=== PATIENT | female | born 1990 | race African-American/Black ===

== ENCOUNTER 2018-10-26 19:45 | Emergency (ER) | payer BC ==
[~2018-10-26] VITALS: Ht 170.2 cm; Wt 86.0 kg
[2018-10-26] MEDS ORDERED: AMOXICILLIN500 MG PO (20:28)
[2018-10-26 20:45] VITALS: BP 148/68
== END 2018-10-26 20:49 | disposition home or self-care (01) | DRG 605 ==
LOC: ED 19:45
PROC: 0HQFXZZ Repair Right Hand Skin, External Approach (ICD-10-PCS; principal; 2018-10-26)
PROC: 2W3JX1Z Immobilization of Right Finger using Splint (ICD-10-PCS; 2018-10-26)
DX: S61.210A Laceration without foreign body of right index finger without damage to nail, initial encounter (principal); W26.0XXA Contact with knife, initial encounter; Y93.G3 Activity, cooking and baking; Y92.000 Kitchen of unspecified non-institutional (private) residence as the place of occurrence of the external cause

== ENCOUNTER 2018-11-02 16:31 | Emergency (ER) | payer BC ==
[~2018-11-02] VITALS: Ht 170.2 cm; Wt 90.0 kg
[~2018-11-02 16:31] MED LIST: AMOXICILLIN500 MG PO
[2018-11-02 16:50] VITALS: BP 126/74
== END 2018-11-02 16:50 | disposition home or self-care (01) | DRG 950 ==
LOC: ED 16:31
DX: S61.210D Laceration without foreign body of right index finger without damage to nail, subsequent encounter (principal)